=== PATIENT | female | born 2000 | race Caucasian/White ===

== ENCOUNTER 2022-06-02 14:45 | Emergency (ER) | payer OTHER ==
[~2022-06-02] VITALS: Ht 152.4 cm; Wt 59.0 kg
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
[2022-06-02] MEDS ORDERED: HYDR-3976 PO (16:16)
[2022-06-02] MEDS ORDERED: LIDO30AD10 TP (16:16)
[2022-06-02] MEDS ORDERED: IBUP-1953 PO (16:16)
[2022-06-02] MEDS ORDERED: KETOROLAC TROMETHAMINE INJ 30 MG/ML VIAL ONE (16:29)
[2022-06-02] MEDS ORDERED: HYDROCODONE/APAP 5/325MG TABLET ONE (16:29)
[2022-06-02] MEDS ORDERED: LIDOCAINE 5% (PATCH) 1 EA PATCH TP ONE ×2 (16:29→16:30)
[2022-06-02] MEDS ORDERED: KETOROLAC TROMETHAMINE INJ 30 MG/ML VIAL IM ONE (16:30)
[2022-06-02] MEDS ORDERED: HYDROCODONE/APAP 5/325MG TABLET PO ONE (16:30)
--- NOTE | 2022-06-02 16:47 | NUR ---
Patient discharged to home in stable condition. Written and verbal after care instructions given. Patient verbalizes understanding of instruction.
[2022-06-02 16:48] VITALS: BP 114/76
== END 2022-06-02 16:48 | disposition home or self-care (01) ==
LOC: ER 14:59
DX: S06.0X0A Concussion without loss of consciousness, initial encounter (principal); M54.9 Dorsalgia, unspecified; Z79.899 Other long term (current) drug therapy; Z60.2 Problems related to living alone; Y04.8XXA Assault by other bodily force, initial encounter; Y93.89 Activity, other specified; Y92.89 Other specified places as the place of occurrence of the external cause; Y99.8 Other external cause status
CPT/HCPCS: 99283; 96372; J1885